=== PATIENT | female | born 1980 | race Caucasian/White ===

== ENCOUNTER 2016-11-27 08:35 | Emergency (ER) | payer OTHER, BC ==
[~2016-11-27] VITALS: Ht 157.5 cm; Wt 56.0 kg
[~2016-11-27 08:35] MED LIST: CIPR500T4 PO; CIPR7.5D4 LEFT EAR; HYDR-3498 PO; PREN1TAB49 PO
[2016-11-27 08:36] VITALS: Ht 157.5 cm; Wt 56.0 kg
[2016-11-27] MEDS ORDERED: IBUPROFEN 600 MG TAB PO ONE (09:00)
[2016-11-27 09:19] LABS: ADD UMIC YES; URINE BILIRUBIN (Dip) NEGATIVE (NEGATIVE); URINE BLOOD (Dip) 2+ (NEGATIVE); URINE COLOR LT. YELLOW (YELLOW); URINE GLUCOSE (Dip) NEGATIVE (NEGATIVE); URINE KETONES (Dip) NEGATIVE (NEGATIVE); URINE LEUKOCYTE ESTERASE (Dip) 1+ (NEGATIVE); URINE NITRITE (Dip) NEGATIVE (NEGATIVE); URINE TOTAL PROTEIN (Dip) NEGATIVE (NEGATIVE); URINE UROBILINOGEN (Dip) 0.2 E.U./dL (0.1-1.0)
--- NOTE | 2016-11-27 09:24 | ERD ---
ER Documentation Chief Complaint Date/Time DATE: 11/27/16 TIME: 09:19 Chief Complaint BACK PAIN RAD RIGHT LEG HPI 36-year-old otherwise healthy female presents the emergency department complaining of low back pain which gradually worsened since lifting heavy water jug at home 1 week ago. Patient states the low back pain is currently a 5 out of 10 throbbing constant, worse with pressure to the area or sitting down. Patient notes mild radiation of pain down her right leg but denies any numbness , tingling, bowel or bladder incontinence, or weakness. Patient states she is able to walk without difficulty. Patient has been attempting to treat her pain at home with Tylenol and Motrin and states the Motrin has improved her symptoms. Patient notes previous episode of low back pain years ago but states it was not as bad as this 1. Patient also notes a history of frequent UTI symptoms although right now is denying any dysuria, hematuria, frequency, abdominal pain. ROS All systems reviewed and are negative except as per history of present illness. Medications Home Meds Active Scripts Cyclobenzaprine Hcl* (Cyclobenzaprine Hcl*) 10 Mg Tablet, 10 MG PO TID, #15 TAB Prov:HERBIE WHITTINGTON PA-C 11/27/16 Naproxen* (Naprosyn*) 500 Mg Tablet, 500 MG PO BID Y for PAIN AND/OR INFLAMMATION, #30 TAB Prov:HERBIE WHITTINGTON PA-C 11/27/16 Hydrocodone/Acetaminophen ([place] 5-325 Tablet) 1 Each Tablet, 1 TAB PO Q6H Y for PAIN, #7 TAB Prov:HERBIE WHITTINGTON PA-C 11/27/16 Nitrofurantoin Monohyd Macrocr* (Macrobid*) 100 Mg Capsr, 100 MG PO HS for 7 Days, CAP Prov:HERBIE WHITTINGTON PA-C 11/27/16 Ciprofloxacin Hcl/Dexameth (Ciprodex Otic Suspension) 7.5 Ml Drops.susp, 4 DROP LEFT EAR BID for 7 Days, BOTTLE Prov:ADDISON CERRATO PA-C 01/03/16 Hydrocodone Bit-Acetaminophen* ([place]*) 5-325 Mg Tab, 1 TAB PO Q6 Y for PAIN, # 14 TAB Prov:CARLA JAY PA-C 05/23/15 Ciprofloxacin Hcl* (Ciprofloxacin Hcl*) 500 Mg Tablet, 500 MG PO BID for 7 Days , TAB Prov:CARLA JAY PA-C 05/23/15 Reported Medications Vits W-Ca,Fe,Fa(<1MG) () 1 Tab Tablet, PO D 03/19/11 Allergies Allergies: Coded Allergies: amoxicillin (Verified Allergy, Unknown, 11/27/16) PMhx/Soc History of Surgery: Yes () Anesthesia Reaction: No Hx Neurological Disorder: No Hx Respiratory Disorders: No Hx Cardiac Disorders: Yes (gestational HTN) Hx Psychiatric Problems: No Hx Miscellaneous Medical Probl: Yes (GASTRITIS ) Hx Alcohol Use: Yes (occasional) Hx Substance Use: No Hx Tobacco Use: No Smoking Status: Never smoker Physical Exam Vitals Vital Signs Date Time Temp Pulse Resp B/P Pulse Ox O2 Delivery O2 Flow Rate FiO2 11/27/16 08:36 97.8 73 18 105/58 99 Physical Exam Const: Well-developed, well-nourished, no acute distress Head: Atraumatic Eyes: Normal Conjunctiva ENT: Normal External Ears, Nose and Mouth. Neck: Full range of motion..~ No meningismus. Resp: Clear to auscultation bilaterally Cardio: Regular rate and rhythm, no murmurs Abd: Soft, non tender, non distended. Normal bowel sounds Skin: No petechiae or rashes Back: Mild tenderness to palpation along right paraspinous lumbar region. Paraspinous muscles tendons upon palpation. Patient able to perform full range of motion at hip joint. Patient able to ambulate well without difficulty. Ext: No cyanosis, or edema Neur: Awake and alert Psych: Normal Mood and Affect Results 24 hrs Laboratory Tests Test 11/27/16 09:03 Urine Color LT. YELLOW Urine Clarity CLEAR Urine pH 6.0 Urine Specific [place] <=1.005 Urine Ketones NEGATIVE Urine Nitrite NEGATIVE Urine Bilirubin NEGATIVE Urine Urobilinogen 0.2 E.U./dL Urine Leukocyte Esterase 1+ Urine Microscopic RBC 2-5/HPF Urine Microscopic WBC 5-10/HPF Urine Epithelial Cells MANY Urine Bacteria FEW Urine Hemoglobin 2+ Urine Glucose NEGATIVE% Urine Total Protein NEGATIVE Current Medications Medications (Trade) Dose Ordered Sig/Sarah Route PRN Reason Start Time Stop Time Status Last Admin Dose Admin Ibuprofen (Motrin) 600 mg ONCE ONCE PO 11/27/16 09:00 11/27/16 09:01 DC 11/27/16 09:00 Procedures/MDM PROCEDURE: XR Lumbar Spine. CLINICAL INDICATION: New onset of low back pain. TECHNIQUE: AP, lateral and cone-down lateral view of the lumbar spine were obtained. COMPARISON: No prior studies are available for comparison. FINDINGS: There are 5 lumbar vertebra appear anatomically aligned. There are small ventral osteophytes at L2-3 and L3-4. There is no evidence of spondylolysis or spondylolisthesis. The sacrum and SI joints are normal. The neural canal and nerve root foramina are normal. There is mild disk space narrowing at L5-S1. IMPRESSION: 1. Early osteoarthritis of the lumbar spine. RPTAT:AAJJ Julian Torres Physician Date Time Electronically viewed and signed by Julian Torres Physician on 11/27/2016 09:59 WERNER/ CC: HERBIE WHITTINGTON PA-C My X-ray My Mandible X-ray X-ray LS-Spine 2V Interpreted by radiologist: Bones: No fracture Joints: No dislocation Foreign body: None Patient received Motrin in the ER and reports improvement of symptoms. Urine analysis revealed 1+ leuk esterase Patient well-appearing, nontoxic, afebrile, in no acute distress upon arrival. Patient able to ambulate well without difficulty. Patient clinical picture consistent with low back strain and UTI The patient's low back pain is unlikely related to serious etiology. The patient exhibits no clinical signs or symptoms and has no history or risk factors to suggest cauda equina, cord compression, epidural abscess, epidural hematoma, acute aortic aneurysm or dissection. Patient to continue pain medication and muscle relaxant for symptomatic relief as well as stretching exercises. Patient to follow-up with ad operations specialist if problem continues. Based on patient's history of present illness and physical examination the decision was made to discharge. The patient was re-evaluated after ED treatment and stabilizing measures, and symptoms have improved. There is no evidence of life threatening injuries or illnesses at this time. On re-examination, patient resting in no distress, stable vital signs, reports feeling better and safe for discharge with outpatient follow up with PMD in 1-2 days. Patient given return precautions. HERBIE WHITTINGTON PA-C Nov 27, 2016 09:24
[2016-11-27 09:26] LABS: BACTERIA,URINE FEW
--- NOTE | 2016-11-27 09:59 | RADRPT ---
PROCEDURE: XR Lumbar Spine. CLINICAL INDICATION: New onset of low back pain. TECHNIQUE: AP, lateral and cone-down lateral view of the lumbar spine were obtained. COMPARISON: No prior studies are available for comparison. FINDINGS: There are 5 lumbar vertebra appear anatomically aligned. There are small ventral osteophytes at L2- 3 and L3-4. There is no evidence of spondylolysis or spondylolisthesis. The sacrum and SI joints a re normal. The neural canal and nerve root foramina are normal. There is mild disk space narrowing at L5-S1. IMPRESSION: 1. Early osteoarthritis of the lumbar spine. RPTAT:AAJJ Physician Venancio Date Time Electronically viewed and signed by Physician Venancio on 11/27/2016 09:59 /
[2016-11-27] MEDS ORDERED: NITR-58 PO (10:28)
[2016-11-27] MEDS ORDERED: HYDR-906 PO (10:28)
[2016-11-27] MEDS ORDERED: CYCL-319 PO (10:28)
[2016-11-27] MEDS ORDERED: NAPR-260 PO (10:28)
== END 2016-11-27 10:40 | disposition home or self-care (01) ==
LOC: FTE 08:35
DX: S39.92XA Unspecified injury of lower back, initial encounter (principal); X50.9XXA Other and unspecified overexertion or strenuous movements or postures, initial encounter; Y92.009 Unspecified place in unspecified non-institutional (private) residence as the place of occurrence of the external cause
CPT/HCPCS: 72100; 81001; 81003

== ENCOUNTER 2018-08-10 09:01 | Emergency (ER) | END 2018-08-10 10:35 | disposition home or self-care (01) ==